=== PATIENT | male | born 1985 | race Caucasian/White ===

== ENCOUNTER 2019-03-23 14:42 | Emergency (ER) | payer OTHER | END 2019-03-23 18:00 | disposition home or self-care (01) | LOC: FTE 18:00 | DX: S92.902A Unspecified fracture of left foot, initial encounter for closed fracture (principal); W01.0XXA Fall on same level from slipping, tripping and stumbling without subsequent striking against object, initial encounter; Y92.9 Unspecified place or not applicable; Z86.73 Personal history of transient ischemic attack (TIA), and cerebral infarction without residual deficits; Z95.0 Presence of cardiac pacemaker | CPT/HCPCS: 73610; 73630-LT; 99283-25 ==